=== PATIENT | male | born 1980 | race Asian ===

== ENCOUNTER 2019-05-03 15:59 | Emergency (ER) | payer MEDICAID, OTHER ==
[~2019-05-03] VITALS: Ht 175.3 cm; Wt 79.4 kg
[2019-05-03 16:01] VITALS: BP 112/70
== END 2019-05-03 18:13 | disposition home or self-care (01) ==
LOC: ED 16:22
DX: S91.111A Laceration without foreign body of right great toe without damage to nail, initial encounter (principal); M79.641 Pain in right hand; F17.210 Nicotine dependence, cigarettes, uncomplicated; Z72.9 Problem related to lifestyle, unspecified; X58.XXXA Exposure to other specified factors, initial encounter; Y93.89 Activity, other specified; Y92.89 Other specified places as the place of occurrence of the external cause; Y99.8 Other external cause status
CPT/HCPCS: 12041; 73140; 90471; 90715; 99284; J3490